=== PATIENT | female | born 1990 | race Two or more races ===

== ENCOUNTER 2017-12-21 19:59 | Emergency (ER) | payer OTHER, MEDICAID ==
[~2017-12-21] VITALS: Ht 165.1 cm; Wt 77.1 kg
[~2017-12-21 19:59] MED LIST: PREN-153 OR
[2017-12-22] MEDS ORDERED: HYDROcodone-ACET 10/325MG TAB PO ONE (01:15)
[2017-12-22 01:26] VITALS: BP 115/75
== END 2017-12-22 01:49 | disposition home or self-care (01) ==
LOC: EDBD 19:59 → ER 19:59
DX: S16.1XXA Strain of muscle, fascia and tendon at neck level, initial encounter (principal); S13.4XXA Sprain of ligaments of cervical spine, initial encounter; R51 Headache; V89.2XXA Person injured in unspecified motor-vehicle accident, traffic, initial encounter; Y93.89 Activity, other specified; Y92.488 Other paved roadways as the place of occurrence of the external cause; Y99.8 Other external cause status
CPT/HCPCS: 70450; 72125